=== PATIENT | female | born 1985 | race African-American/Black ===

== ENCOUNTER 2023-04-21 05:16 | Day surgery (SDC) | payer OTHER ==
[2023-04-18 17:30] VITALS: BMI 25.8
[2023-04-21] MEDS ORDERED: BUPIVACAINE HCL/PF 0.5% (5MG/ML) 10 ML VIAL ONE (10:34)
[2023-04-21] MEDS ORDERED: MIDAZOLAM HCL 2 MG/2 ML SINGLE DOSE VIAL ONE ×2 (11:09→11:32)
[2023-04-21] MEDS ORDERED: PROPOFOL 20 ML ONE (11:09)
[2023-04-21] MEDS ORDERED: ONDANSETRON 4 MG/2 ML VIAL IVPUSH PRN (12:52)
[2023-04-21] MEDS ORDERED: KETOROLAC TROMETHAMINE 30 MG/1 ML VIAL IVPUSH ONE (12:52)
[2023-04-21] MEDS ORDERED: ACETAMINOPHEN 1000 MG/100 ML BAG IVPB ONE ×2 (12:52→17:14)
[2023-04-21] MEDS ORDERED: LACTATED RINGERS SOLUTION 1,000 ML IV SCH (13:00)
[2023-04-21] MEDS ORDERED: KETOROLAC TROMETHAMINE 30 MG/1 ML VIAL ONE (13:09)
[2023-04-21] MEDS ORDERED: ACETAMINOPHEN INJECTION 100 ML IVPB ONE ×2 (13:09→17:15)
[2023-04-21 16:53] VITALS: RESP 20; TEMP 98
[2023-04-21] MEDS ORDERED: oxyCODONE HCL 5 MG TABLET PO ONE ×2 (17:24→17:33)
[2023-04-21] MEDS ORDERED: oxyCODONE HCL 5 MG TABLET ONE (17:25)
[2023-04-21 19:45] VITALS: BP 111/73; PULSE 65
== END 2023-04-21 19:27 | disposition home or self-care (01) ==
LOC: JASU-SURG 05:16
PROVIDERS: ATTEND Surgery
PROC: 0WQF0ZZ Repair Abdominal Wall, Open Approach (ICD-10-PCS; principal; 2023-04-21 11:40)
DX: K42.9 Umbilical hernia without obstruction or gangrene (principal)
CPT/HCPCS: 94760

== ENCOUNTER 2024-05-27 10:30 | Emergency (ER) | payer OTHER ==
[2024-05-27 10:48] VITALS: BP 140/93; PULSE 72; RESP 17; TEMP 98.4; BMI 27.4
[2024-05-27 11:46] LABS: BASO % 0.9 % (0-2.0); EOS % 0.8 % (0-4.5); LYMPH % 33.1 % (8-40); MCH 29.5 pg (25.7-33.7); MCHC 33.3 g/dl (32.0-36.0); MEAN CELL VOLUME 88.5 fl (80-96); MEAN PLT VOLUME 8.5 fl (7.5-11.1); MONO % 8.7 % (3.8-10.2); NEUT % 56.5 % (42.8-82.8); PLATELET COUNT 243 10^3/uL (134-434); RBC 4.41 M/mm3 (3.60-5.2); RDW 13.9 % (11.6-15.6); WHITE BLOOD COUNT 6.3 K/mm3 (4.0-10.0)
[2024-05-27 11:50] LABS: INR 1.04 (0.83-1.09); PROTHROMBIN TIME (PATIENT) 11.7 SEC (9.7-13.0)
[2024-05-27 11:53] LABS: ACTIVATED PTT 28.1 SECONDS (25.2-36.5)
[2024-05-27 12:06] LABS: POTASSIUM 4.3 mmol/L (3.5-5.1)
[2024-05-27 12:08] LABS: CALCIUM 9.3 mg/dL (8.5-10.1)
[2024-05-27 12:09] LABS: ALBUMIN 3.9 g/dl (3.4-5.0); BLOOD UREA NITROGEN 9.9 mg/dL (7-18)
[2024-05-27 12:12] LABS: CREATININE 0.6 mg/dL (0.55-1.3)
[2024-05-27 12:14] LABS: BILIRUBIN,TOTAL 0.4 mg/dL (0.2-1); TOT PROT 7.6 g/dl (6.4-8.2)
[2024-05-27 13:03] LABS: HIV INTERPRETATION NEGATIVE (NEGATIVE)
== END 2024-05-27 15:48 | disposition home or self-care (01) ==
LOC: JER 10:30
DX: R07.89 Other chest pain (principal); R06.02 Shortness of breath; Z20.822 Contact with and (suspected) exposure to COVID-19
CPT/HCPCS: 0241U-QW; 36415; 71045-TC-FY; 71275-TC; 80053; 84439; 84443; 84484; 84703; 85025; 85379; 85610; 85730; 86803; 87389; 93005; 93010; 99285-25